=== PATIENT | female | born 1955 | race Caucasian/White ===

== ENCOUNTER 2017-09-16 10:42 | Outpatient (CLI) | payer OTHER ==
--- NOTE | 2017-09-18 08:31 | Mammography Report ---
BILATERAL DIGITAL SCREENING MAMMOGRAM: 09/16/2017 CLINICAL INDICATION: A 62-year-old nulliparous patient for screening. COMPARISON: 08/2015, 08/2014, 08/2013, 07/2012, 06/2011, 02/2010. TECHNIQUE: Routine CC and MLO projections were obtained of the breasts. FINDINGS: Scattered fibroglandular tissue is present within the breasts. There are no dominant masses, suspicious microcalcifications, or secondary signs of malignancy. In comparison to the previous studies, there are no significant changes. ASSESSMENT: NO MAMMOGRAPHIC EVIDENCE OF MALIGNANCY. NO SIGNIFICANT INTERVAL CHANGES. RECOMMENDATION: Screening mammography is recommended annually. BIRADS category 1 - negative. STANDARD QUALIFYING STATEMENTS 1. This examination was reviewed with the aid of Computed Aided Detection (CAD). 2. A negative x-ray report should not delay biopsy if a dominant or clinically suspicious mass is present. More than 5% of cancers are not identified by x-ray. 3. Dense breasts may obscure an underlying neoplasm. arian TD: 09/17/2017 20:52 GERARD
== END 2017-09-16 10:43 | disposition home or self-care (01) ==
LOC: DI 10:42
PROVIDERS: ATTEND Internal Medicine
DX: Z12.31 Encounter for screening mammogram for malignant neoplasm of breast (principal)
CPT/HCPCS: 77067

== ENCOUNTER 2019-09-19 13:27 | Observation (INO) | payer OTHER ==
--- NOTE | 2019-09-19 15:17 | XRAY Report ---
Reason: cough Procedure Date: 09/19/2019 Accession Number: [id number] / [id number] Procedure: XR - Chest 2 View X-Ray CPT Code: 83133 Final Report FULL RESULT: EXAM: CHEST RADIOGRAPHY EXAM DATE: 09/19/2019 02:47 PM. CLINICAL HISTORY: Cough. COMPARISON: 1V CXR 09/07/2006 11:50 AM ESOPHAGRAM 09/08/2006 11:04 AM. TECHNIQUE: 2 views. FINDINGS: Lungs/Pleura: Prominent interstitial lung markings diffusely. No focal consolidation. No pleural effusion. No pneumothorax. Mediastinum: Cardiac size is normal. Air column over the midline mediastinum may be related to patulous esophagus. Other: Stable surgical clips over epigastric region. Partially visualized internal fixation hardware related to the proximal left humerus. IMPRESSION: 1. Prominent interstitial lung markings which could reflect interstitial edema or infection. No focal consolidation. 2. Air column over midline mediastinum could reflect a patulous, air filled esophagus. Clinical correlation recommended. RADIA
[2019-09-19] MEDS ORDERED: IPRATROPIUM/ALBUTEROL 3 ML NEB INH STA (16:07)
--- NOTE | 2019-09-19 16:46 | ED Physician Documentation ---
PD HPI URI - Stated complaint Stated Complaint: SOA, LIGHTHEADED - Chief complaint Chief Complaint: Resp - History obtained from History obtained from: Patient - History of Present Illness Timing - onset: How many weeks ago (2) Timing duration: Weeks (2) Timing details: Gradual onset Pain level max: 0 Pain level now: 0 Associated symptoms: Nasal congestion, Rhinorrhea, Dry cough, Dyspnea (wheezing). No: Fever, Chills Contributing factors: Sick contact Improves by: Rest, MDI/nebulizer (albuterol) Worsened by: Activity, Breathing Recently seen: Clinic - Additional information Additional information: Patient saw her doctor last week, she was started on azithromycin and Prednisone. She did not pick out hand the prednisone until today. Wheezing became worse today. Review of Systems Ten Systems: 10 systems reviewed and negative Constitutional: denies: Fever, Chills Nose: reports: Rhinorrhea / runny nose, Congestion Respiratory: reports: Dyspnea, Wheezing GI: denies: Abdominal Pain, Nausea, Vomiting, Diarrhea Skin: denies: Rash Musculoskeletal: denies: Neck pain, Back pain Neurologic: denies: Headache PD PAST MEDICAL HISTORY - Past Medical History Past Medical History: Yes Respiratory: Asthma - Past Surgical History Past Surgical History: No - Allergies Allergies/Adverse Reactions: Allergies Allergy/AdvReac Type Severity Reaction Status Date / Time No Known Drug Allergies Allergy Verified 09/19/19 13:45 - Living Situation Living Situation: reports: With family Living Arrangement: reports: At home - Social History Does the pt smoke?: No Does the pt have substance abuse?: No PD ED PE NORMAL - Vitals Vital signs reviewed: Yes - General General: Alert and oriented X 3, No acute distress, Well developed/nourished - HEENT HEENT: PERRL, Ears normal, Moist mucous membranes, Pharynx benign - Neck Neck: Supple, no meningeal sign, No adenopathy - Cardiac Cardiac: RRR - Respiratory Respiratory: No respiratory distress, Other (Diffuse wheezing bilaterally.) - Abdomen Abdomen: Soft, Non tender, Non distended - Derm Derm: Warm and dry - Extremities Extremities: No edema - Neuro Neuro: Alert and oriented X 3 - Psych Psych: Normal mood, Normal affect Results - Vitals Vitals: Vital Signs - 24 hr 09/19/19 09/19/19 09/19/19 13:40 16:44 16:46 Temperature 37.4 C Heart Rate 117 H 116 H 117 H Respiratory 18 24 Rate Blood Pressure 176/104 H 146/102 H O2 Saturation 97 100 09/19/19 09/19/19 17:50 18:42 Temperature Heart Rate 121 H 125 H Respiratory 18 16 Rate Blood Pressure 159/108 H O2 Saturation 100 Oxygen O2 Source Room air - Labs Labs: Laboratory Tests 09/19/19 09/19/19 17:29 17:29 WBC 17.3 H RBC 4.48 Hgb 12.6 Hct 38.5 MCV 85.9 MCH 28.1 MCHC 32.7 RDW 15.3 H Plt Count 374 MPV 10.2 Neut # (Auto) 14.5 H Lymph # (Auto) 1.3 L Bee # (Auto) 1.3 H Eos # (Auto) 0.0 Baso # (Auto) 0.0 Absolute Nucleated RBC 0.00 Nucleated RBC % 0.0 Sodium 138 Potassium 3.2 L Chloride 103 Carbon Dioxide 22 Anion Gap 13.0 BUN 8 Creatinine 0.7 Estimated GFR (MDRD) 85 L Glucose 140 H Calcium 9.6 Total Bilirubin 0.6 AST 25 ALT 18 Alkaline Phosphatase 89 Total Protein 7.0 Albumin 4.1 Globulin 2.9 Albumin/Globulin Ratio 1.4 Lipase 19 L - Rads (name of study) cxr Radiology: Prelim report reviewed, EMP read contemporaneously, See rad report (1. Prominent interstitial lung markings which could reflect interstitial edema or infection. No focal consolidation. 2. Air column over midline mediastinum could reflect a patulous, air filled esophagus. Clinical correlation recommended. ) PD MEDICAL DECISION MAKING - ED course Complexity details: reviewed results, re-evaluated patient, considered differential, d/w patient ED course: Patient presents to the emergency department with an asthma exacerbation. She received Solu-Medrol, DuoNeb and albuterol treatment x2 in the emergency department. Total of 3 nebulizer treatment here. She is not hypoxic, but is significantly short of breath and is unable to walk to the bathroom in the room without becoming short of breath. She also cannot speak in full sentences while lying in the bed. We will place her in observation. Discussed the case with Dr. Elizabeth, hospitalist who accepts This document was made in part using voice recognition software. While efforts are made to proofread this document, sound alike and grammatical errors may occur. Departure - Departure Disposition: ED Place in Observation Clinical Impression: Asthma exacerbation Qualifiers: Asthma severity: unspecified severity Asthma persistence: unspecified Qualified Code(s): J45.901 - Unspecified asthma with (acute) exacerbation Condition: Stable Discharge Date/Time: 09/19/19 20:12
[2019-09-19] MEDS ORDERED: ALBUTEROL NEB 2.5 MG/3 ML INH STA (17:04)
[2019-09-19] MEDS ORDERED: methylPREDNISolone SUCCINATE 125 MG/2 ML VIAL IVP STA (19:18)
[2019-09-19] MEDS ORDERED: SODIUM CHLORIDE FLUSH 0.9% 10 ML SYRINGE IVP PRN (19:23)
[2019-09-19] MEDS ORDERED: IPRATROPIUM/ALBUTEROL 3 ML NEB INH PRN (19:25)
--- NOTE | 2019-09-19 19:28 | HISTORY & PHYSICAL EXAMINATION ---
Chief Complaint - Chief Complaint Chief Complaint: dyspnea History of Present Illness - Admitted From Admitted From:: [facility] - History Obtained From Records Reviewed: yes History obtained from: patient - History of Present Illness HPI Comment/Other: Patient is a 64 y/o female who presented to the ED with dyspnea and an unproductive cough. Her symptoms have been going on for the past 4-5 days. She saw her PCP(Dr Tomlin) who prescribed a Zpak. The patient has completed the antibiotic. At the same time she was prescribed steroids and advised to take it if her symptoms did not improve. She started the steroids this morning. At work today she was having significant nonproductive cough, dyspnea, wheezing and was unable to speak in full sentences. She went to her PC's office and was advised to go to the ED so she drove herself to the ED. In the ED she was given 3 breathing treatments but she continued to have conversational dyspnea and was unable to take deep breaths. As a result she was presented for admission. At bedside she denies chest pain, abd pain, nausea or vomiting. She is able to speak with more ease and has better air movement upon auscultation of her lungs. She reports sweats and going through periods of feeling hot and cold. She usually uses her albuterol inhaler 3 times a day. The last time she had an exacerbation of asthma was last . Usually it is triggered by stress. 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 She is being admitted for further treatment. History - Past Medical History Cardiovascular: reports: Hypertension Respiratory: reports: Asthma Endocrine/Autoimmune: reports: Other (Hx of insulinoma) GI: reports: GERD, Ulcers (peptic) Psych: reports: Depression, Anxiety Other Past Medical History: Bulging cervical discs - Past Surgical History General: reports: Appendectomy, Splenectomy HEENT: reports: Tonsil/Adenoidectomy Other past surgical history: Insulinoma - Family & Social History Family History Comment/Other: father: hypertension. sister: breast cancer Living arrangement: At home Living Situation: With family Social History Notes: Her nephew and his live with her. She drinks 1-2 beers daily. She denies tobacco or illicit drug use. - POLST Patient has POLST: No POLST Status: Full Code Meds/Allgy - Allergies Allergies/Adverse Reactions: Allergies Allergy/AdvReac Type Severity Reaction Status Date / Time No Known Drug Allergies Allergy Verified 09/19/19 13:45 Review of Systems - Constitutional Constitutional: reports: Chills. denies: Fever - Eyes Eyes: denies: Pain, Vision loss - Ears, Nose & Throat Ears, Nose & Throat: denies: Ear pain, Sore throat - Cardiovascular Cariovascular: reports: Palpitations. denies: Chest pain, Lightheadedness, Syncope, Exertional dyspnea, Decr. exercise tolerance - Respiratory Respiratory: reports: Cough, Wheezing, SOB at rest, SOB with exertion. denies: Sputum production - Gastrointestinal Gastrointestinal: reports: Reflux/heartburn. denies: Abdominal pain, Abdominal distention, Constipation, Diarrhea, Nausea, Vomiting, Coffee grounds emesis - Genitourinary Genitourinary: denies: Dysuria, Frequency, Urgency, Hematuria - Musculoskeletal Musculoskeletal: denies: Muscle pain, Back pain, Muscle aches - Integumentary Integumentary: denies: Rash, Pruritis, Lesions - Neurological Neurological: denies: General weakness, Focal weakness, Headache, Dizziness, Numbness - Psychiatric Psychiatric: reports: Depression, Anxiety - Endocrine Endocrine: denies: Polyuria, Polydypsia - Hematologic/Lymphatic Hematologic/Lymphatic: denies: Anemia, Bruising, Petechiae Prior Level of Functionality: She is independent of activities of daily living Exam - Vital Signs Vital Signs: Vital Signs x48h Temp Pulse Resp BP Pulse Ox 09/19/19 18:42 125 H 16 159/108 H 100 09/19/19 17:50 121 H 18 09/19/19 16:46 117 H 24 146/102 H 100 09/19/19 16:44 116 H 09/19/19 13:40 37.4 C 117 H 18 176/104 H 97 - Physical Exam General Appearance: positive: Alert, Mild distress Eyes Bilateral: positive: Normal inspection, PERRL, EOMI ENT: positive: ENT inspection nml, No signs of dehydration Neck: positive: No JVD, Trachea midline Respiratory: positive: Chest non-tender. negative: Breath sounds nml, Wheezes, Rales, Rhonchi Cardiovascular: positive: Tachycardia Abdomen: positive: Non-tender, No organomegaly, Nml bowel sounds, No distention. negative: Guarding, Rebound Back: positive: Nml inspection Skin: positive: Color nml. negative: No rash, Warm, Dry Extremities: positive: Non-tender, Full ROM, No pedal edema Neurologic/Psychiatric: positive: Oriented x3, Mood/affect nml Conclusion/Plan - Problem List (1) Asthma exacerbation Conclusion/Plan: Duoneb and albuterol ordered Solumedrol 125mg IV q6hr O2Sat 100% on room air. Patient able to converse in full sentences Qualifiers: Asthma severity: mild Asthma persistence: unspecified Qualified Code(s): J45.901 - Unspecified asthma with (acute) exacerbation (2) Hypertension Conclusion/Plan: On lisinopril. Will resume when dose verified Amlodipine 5mg po daily ordered (3) GERD (gastroesophageal reflux disease) Conclusion/Plan: Protonix ordered (4) Anxiety and depression Conclusion/Plan: Will resume home med when verified Patient currently know/remember her list of meds (5) Hypokalemia Conclusion/Plan: Will replace and recheck (6) Leukocytosis Conclusion/Plan: Reactive vs Infectious Suspect reactive. Also patient on steroids Will monitor for now - Lab Results Fish Bones: 09/19/19 17:29 09/19/19 17:29 Core Measures - Anticipated LOS I expect patient to be DC'd or transferred within 96 hours.: Yes - DVT/VTE - Prophylaxis VTE/DVT Device ordered at admit?: Yes VTE/DVT Prophylaxis med ordered at admit?: Yes
[2019-09-19] MEDS ORDERED: ALBUTEROL NEB 2.5 MG/3 ML INH PRN (19:29)
[2019-09-19 19:38] LABS: BASOPHILS % (AUTO) 0.2 %; HGB - HEMOGLOBIN 12.6 g/dL (12.0-16.0); LYMPHOCYTES # (AUTO) 1.3 10^3/uL (1.5-3.5); LYMPHOCYTES % (AUTO) 7.5 %; MEAN CORPUSCULAR HEMOGLOBIN 28.1 pg (27.0-31.0); MEAN CORPUSCULAR HGB CONC 32.7 g/dL (32.0-36.0); MEAN CORPUSCULAR VOLUME 85.9 fL (81.0-99.0); MEAN PLATELET VOLUME 10.2 fL (7.9-10.8); MONOCYTES # (AUTO) 1.3 10^3/uL (0.0-1.0); MONOCYTES % (AUTO) 7.7 %; NEUTROPHILS # (AUTO) 14.5 10^3/uL (1.5-6.6); NEUTROPHILS % (AUTO) 83.8 %; PLT - PLATELET COUNT 374 10^3/uL (130-450); RED BLOOD COUNT 4.48 10^6/uL (4.20-5.40); RED CELL DISTRIBUTION WIDTH 15.3 % (12.0-15.0); WHITE BLOOD COUNT 17.3 x10^3/uL (4.8-10.8)
[2019-09-19 19:51] LABS: ALBUMIN 4.1 g/dL (3.2-5.5); ALBUMIN/GLOBULIN RATIO 1.4 (1.0-2.2); BILIRUBIN,TOTAL 0.6 mg/dL (0.2-1.0); CALCIUM 9.6 mg/dL (8.5-10.3); CREATININE 0.7 mg/dL (0.4-1.0)
[2019-09-19] MEDS ORDERED: traMADol 50 MG TABLET PO STA (20:00)
[2019-09-19] MEDS ORDERED: guaiFENesin/CODEINE 5 ML UDC PO PRN (21:33)
[2019-09-19] MEDS ORDERED: amLODIPine 5 MG TABLET PO STA (21:34)
[2019-09-19] MEDS: methylPREDNISolone SUCCINATE 125 MG/2 ML VIAL IVP SCH (21:37)
[2019-09-19] MEDS ORDERED: POTASSIUM CHLORIDE 20 MEQ TABLET PO ONE (22:48)
[2019-09-19] MEDS: SODIUM CHLORIDE FLUSH 0.9% 10 ML SYRINGE IVP SCH (23:47)
[2019-09-20] MEDS ORDERED: traMADol 50 MG TABLET PO PRN ×2 (04:24→13:25)
[2019-09-20] MEDS: methylPREDNISolone SUCCINATE 125 MG/2 ML VIAL IVP SCH (04:47)
[2019-09-20 05:38] LABS: BASOPHILS % (AUTO) 0.1 %; HGB - HEMOGLOBIN 11.8 g/dL (12.0-16.0); LYMPHOCYTES # (AUTO) 0.9 10^3/uL (1.5-3.5); LYMPHOCYTES % (AUTO) 7.5 %; MEAN CORPUSCULAR HEMOGLOBIN 27.8 pg (27.0-31.0); MEAN CORPUSCULAR HGB CONC 32.6 g/dL (32.0-36.0); MEAN CORPUSCULAR VOLUME 85.4 fL (81.0-99.0); MEAN PLATELET VOLUME 10.7 fL (7.9-10.8); MONOCYTES % (AUTO) 0.3 %; NEUTROPHILS # (AUTO) 11.3 10^3/uL (1.5-6.6); NEUTROPHILS % (AUTO) 91.4 %; PLT - PLATELET COUNT 357 10^3/uL (130-450); RED BLOOD COUNT 4.24 10^6/uL (4.20-5.40); RED CELL DISTRIBUTION WIDTH 15.7 % (12.0-15.0); WHITE BLOOD COUNT 12.4 x10^3/uL (4.8-10.8)
[2019-09-20 05:43] LABS: CREATININE 0.4 mg/dL (0.4-1.0)
[2019-09-20] MEDS ORDERED: PANTOPRAZOLE 40 MG TABLET PO SCH (07:00)
[2019-09-20] MEDS: ENOXAPARIN 40 MG/0.4 ML SYRINGE SUBQ SCH ×2 (08:40→08:41)
[2019-09-20] MEDS ORDERED: amLODIPine 5 MG TABLET PO SCH (09:00)
[2019-09-20] MEDS ORDERED: IPRATROPIUM/ALBUTEROL 3 ML NEB INH PRN (09:43)
[2019-09-20] MEDS ORDERED: BUDESONIDE 0.5 MG/2 ML NEB INH SCH (10:00)
[2019-09-20] MEDS ORDERED: LORATADINE 10 MG TABLET PO SCH (11:00)
[2019-09-20] MEDS: SODIUM CHLORIDE FLUSH 0.9% 10 ML SYRINGE IVP SCH (11:17)
[2019-09-20 11:51] VITALS: BP 136/81
[2019-09-20] MEDS ORDERED: methylPREDNISolone SUCCINATE 40 MG/ML VIAL IVP SCH (12:00)
--- NOTE | 2019-09-20 12:27 | PHARMACY PROGRESS NOTE ---
- Best Possible Medication History Admit Date and Time: 09/19/191922 Processed by: Pharmacy Medication History completed: Yes Patient Interview: Completed Secondary Source(s): Pharmacy records ([facility]) As the person ultimately responsible for medication therapy, providers are able to order a medication from an existing home medication list in [facility] via the "Reconcile Routine" prior to Confirmation of that medication by respiratory support technician. Such practice is discouraged except when the physician, in their clinical judgment, deems that a medical need exists for a medication without regard to previous use.
[2019-09-20] MEDS ORDERED: TEMAZEPAM 15 MG CAPSULE PO PRN (13:25)
--- NOTE | 2019-09-20 13:45 | Discharge Plan ---
Discharge Plan Problem Reviewed?: Yes Disposition: Home, Self Care Condition: Stable Prescriptions: Fluticasone/Salmeterol [Advair Hfa 115-21 Mcg Inhaler] 8 gm IH Q6H PRN #1 hfa.aer.ad PRN Reason: Shortness Of Air/Wheezing predniSONE [Deltasone] 20 mg PO [id number] #21 tab Diet: Regular Activity Restrictions: Activity as Tolerated Shower Restrictions: No (fall precaution) Instruction Topics: Asthma, Fluticasone Salmeterol inhalation powder, Prednisone tablets Health Concerns: asthma Plan of Treatment: after you were treated in hospital, you do not present any respiratory distress now. You are prescribed Advair PRN, and shortness period of time of oral steroid. Care Goals: stabilization and improvement of your asthma Assessment: discussed with you about the care plan, you understood. Additional Instructions or Follow Up instructions: you may followup your PCP in 1-2 weeks. Should your symptoms return or worsen, you may present ER or call 911 for help No Smoking: If you smoke, Please STOP! Call for help. Follow-up with: Kristine Martell MD [Primary Care Provider] -
--- NOTE | 2019-09-20 13:52 | DISCHARGE SUMMARY ---
Discharge Summary Admit Date: 09/19/19 Discharge Date: 09/20/19 Discharging Provider: BALDERAS Primary Care Provider: Kristine Kc Condition at Discharge: Stable Discharge Disposition: 01 Home, Self Care Discharge Facility Name: home - DIAGNOSES Admission Diagnoses: (1) Asthma exacerbation (2) Hypertension (3) GERD (gastroesophageal reflux disease) (4) Anxiety and depression (5) Hypokalemia (6) Leukocytosis Discharge Diagnoses with Status of Each Condition: (1) Asthma exacerbation resolved. pt does not present any more respiratory distress. she has 99% sat on room air. pt has no wheezing in her lung sound, and no cough. pt is prescribed PRN of Advair, and short term of oral steroid with waned off dosage. (2) Hypertension stable (3) GERD (gastroesophageal reflux disease) stable (4) Anxiety and depression stable (5) Hypokalemia resolved (6) Leukocytosis improved, it is likely caused by pt's recently steroid intake. - HPI History of Present Illness: refer from Dr. Elizabeth's HPI on 09/19/19 Patient is a 64 y/o female who presented to the ED with dyspnea and an unproductive cough. Her symptoms have been going on for the past 4-5 days. She saw her PCP(Dr Tomlin) who prescribed a Zpak. The patient has completed the antibiotic. At the same time she was prescribed steroids and advised to take it if her symptoms did not improve. She started the steroids this morning. At work today she was having significant nonproductive cough, dyspnea, wheezing and was unable to speak in full sentences. She went to her PC's office and was advised to go to the ED so she drove herself to the ED. In the ED she was given 3 breathing treatments but she continued to have conversational dyspnea and was unable to take deep breaths. As a result she was presented for admission. At bedside she denies chest pain, abd pain, nausea or vomiting. She is able to speak with more ease and has better air movement upon auscultation of her lungs. She reports sweats and going through periods of feeling hot and cold. She usually uses her albuterol inhaler 3 times a day. The last time she had an exacerbation of asthma was last . Usually it is triggered by stress. 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 She is being admitted for further treatment. - HOSPITAL COURSE Hospital Course: pt was admitted for acute asthma exacerbation attack. after pt was treated with IV of steroid, INH of beta-agonist, INH of steroid, pt's symptom is resolved. pt has no wheezing, no respiratory distress. she has 99% sat on room air. The [facility] hospital course is as the below: (1) Asthma exacerbation resolved. pt does not present any more respiratory distress. she has 99% sat on room air. pt has no wheezing in her lung sound, and no cough. pt is hemodynamic stable. pt is prescribed PRN of Advair, and short term of oral steroid with waned off dosage. (2) Hypertension stable (3) GERD (gastroesophageal reflux disease) stable (4) Anxiety and depression stable (5) Hypokalemia resolved (6) Leukocytosis improved, it is likely caused by pt's recently steroid intake. - ALLERGIES Allergies/Adverse Reactions: Allergies Allergy/AdvReac Type Severity Reaction Status Date / Time No Known Drug Allergies Allergy Verified 09/19/19 13:45 - MEDICATIONS Home Medications: Ambulatory Orders Medication Instructions Recorded Confirmed Albuterol Sulfate [Albuterol 2 puffs INH Q4H PRN 09/20/19 09/20/19 Sulfate Hfa] Buspirone HCl 15 mg PO BID 09/20/19 09/20/19 Celecoxib [Celebrex] 200 mg PO DAILY 09/20/19 09/20/19 Cyclobenzaprine HCl 10 mg PO BID 09/20/19 09/20/19 Fluoxetine HCl 40 mg PO DAILY 09/20/19 09/20/19 Fluticasone/Salmeterol [Advair Hfa 8 gm IH Q6H PRN #1 hfa.aer.ad 09/20/19 115-21 Mcg Inhaler] Gabapentin 600 mg PO TID 09/20/19 09/20/19 Montelukast [Singulair] 10 mg PO QPM 09/20/19 09/20/19 Temazepam 15 mg PO QPM PRN 09/20/19 09/20/19 lisinopriL [Lisinopril] 20 mg PO DAILY 09/20/19 09/20/19 predniSONE [Deltasone] 20 mg PO [id number] #21 tab 09/20/19 traMADol [Ultram] 100 mg PO TID PRN 09/20/19 09/20/19 - PHYSICAL EXAM AT DISCHARGE General Appearance: positive: No acute distress, Alert. negative: Lethargic Eyes Bilateral: positive: Normal inspection, PERRL, EOMI, No lid inflammation ENT: positive: ENT inspection nml, Pharynx nml, No signs of dehydration. negative: Purulent nasal drainage Neck: positive: Nml inspection, Thyroid nml, No JVD, Trachea midline. negative: Thyromegaly, Lymphadenopathy (R), Lymphadenopathy (L), Stiff neck, Tracheal deviation Respiratory: positive: Chest non-tender, No respiratory distress, Breath sounds nml. negative: Wheezes, Rales, Rhonchi Cardiovascular: positive: Regular rate & rhythm, No murmur, No gallop, Other (pt is not tachycardia, her HR is 92 by my manual caculation by stethoscope). negative: Irregularly irregular, Extrasystoles, Tachycardia, Bradycardia, JVD present, Systolic murmur, Diastolic murmur Peripheral Pulses: positive: 2+ Abdomen: positive: Non-tender, No organomegaly, Nml bowel sounds, No distention. negative: Tenderness, Guarding, Rebound Skin: positive: Color nml, No rash, Warm, Dry. negative: Cyanosis, Diaphoresis, Pallor, Skin rash Extremities: positive: Non-tender, Full ROM, Nml appearance. negative: Calf tenderness, Brayden's sign/cords Neurologic/Psychiatric: positive: Oriented x3, Motor nml, Sensation nml, Mood/affect nml. negative: Weakness, Sensory loss, Facial droop, Slurred/abnml speech, Depressed mood/affect - LABS Result Diagrams: 09/20/19 04:55 09/20/19 04:55 - FOLLOW UP Follow Up: after you were treated in hospital, you do not present any respiratory distress now. You are prescribed Advair PRN, and shortness period of time of oral steroid. you may followup your PCP in 1-2 weeks. Should your symptoms return or worsen, you may present ER or call 911 for help - TIME SPENT Time Spent in Discharge (Minutes): 40
[2019-09-20] MEDS ORDERED: GABAPENTIN 300 MG CAPSULE PO SCH (14:00)
[2019-09-20] MEDS ORDERED: MONTELUKAST 10 MG TABLET PO SCH (21:00)
[2019-09-20] MEDS ORDERED: busPIRone 5 MG TABLET PO SCH (21:00)
[2019-09-21] MEDS ORDERED: CELECOXIB 200 MG PO SCH (09:00)
[2019-09-21] MEDS ORDERED: NON FORMULARY MED (Fluoxetine Hcl [Fluoxetine Hcl] 40 MG) PO SCH (09:00)
[2019-09-21] MEDS ORDERED: NON FORMULARY MED (Lisinopril [Lisinopril] 20 MG) PO SCH (09:00)
== END 2019-09-20 14:31 | disposition home or self-care (01) ==
LOC: ED 13:27 → MS2 19:23
PROVIDERS: ADMIT Internal Medicine; ATTEND Nurse Practitioner Gerontology
DX: J45.901 Unspecified asthma with (acute) exacerbation (principal); I10 Essential (primary) hypertension; K21.9 Gastro-esophageal reflux disease without esophagitis; F41.9 Anxiety disorder, unspecified; F32.9 Major depressive disorder, single episode, unspecified; E87.6 Hypokalemia; D72.829 Elevated white blood cell count, unspecified
CPT/HCPCS: 36415; 71046; 80048; 80053; 83690; 85025; 94640; 96372; 96374; 96376; 99285; A9270; G0378; J1650; J7626

== ENCOUNTER 2020-08-12 14:07 | Outpatient (CLI) | payer OTHER ==
--- NOTE | 2020-08-13 14:05 | Mammography Report ---
BILATERAL DIGITAL SCREENING MAMMOGRAM 3D/2D: 08/12/2020 CLINICAL: Routine screening. Family history of breast cancer. Comparison is made to exams dated: 09/16/2017 mammogram, 09/25/2015 mammogram, 09/19/2014 mammogram, 09/06/2013 mammogram, 08/24/2012 mammogram, and 07/09/2011 mammogram - [facility]. The tissue of both breasts is predominantly fatty. There is a benign calcification in the left breast. No significant masses, calcifications, or other findings are seen in either breast. There has been no significant interval change. IMPRESSION: BENIGN There is no mammographic evidence of malignancy. A 1 year screening mammogram is recommended. This exam was interpreted at Station ID: [id number]. NOTE: For mammograms, a report in lay terms will be sent to the patient. Approximately 15% of breast malignancies will not be visualized mammographically. In the management of a palpable breast mass, a negative mammogram must not discourage biopsy of a clinically suspicious lesion. Electronically Signed By: Terrence Valentin acr/penrad:08/12/2020 18:11:08 ACR BI-RADS Category 2: Benign Finding(s) 3342F PARENCHYMAL PATTERN: (F) - The breast(s) demonstrate(s) diffuse fatty replacement. BI-RADS CATEGORY: (2) - 2 RECOMMENDATION: (ANNUAL) - Recommend routine annual screening mammography. [id number] 1 year screening LATERALITY: (B)
== END 2020-08-12 14:08 | disposition home or self-care (01) ==
LOC: DI 14:07
PROVIDERS: ATTEND Internal Medicine
DX: Z12.31 Encounter for screening mammogram for malignant neoplasm of breast (principal); Z80.3 Family history of malignant neoplasm of breast
CPT/HCPCS: 77063; 77067

== ENCOUNTER 2021-05-04 15:14 | Outpatient (CLI) | payer OTHER | END 2021-05-04 15:15 | disposition critical access hospital (66) | LOC: EMS 15:14 | DX: R11.10 Vomiting, unspecified (principal); R19.7 Diarrhea, unspecified; F41.9 Anxiety disorder, unspecified | CPT/HCPCS: A0425; A0427 ==

== ENCOUNTER 2021-05-04 15:26 | Emergency (ER) | payer OTHER ==
[2021-05-04 15:53] LABS: BASOPHILS % (AUTO) 0.2 %; EOSINOPHILS % (AUTO) 0.9 %; HCT - HEMATOCRIT 40.4 % (37.0-47.0); HGB - HEMOGLOBIN 13.7 g/dL (12.0-16.0); LYMPHOCYTES % (AUTO) 14.5 %; MEAN CORPUSCULAR HEMOGLOBIN 27.6 pg (27.0-31.0); MEAN CORPUSCULAR HGB CONC 33.9 g/dL (32.0-36.0); MEAN CORPUSCULAR VOLUME 81.3 fL (81.0-99.0); MEAN PLATELET VOLUME 10.4 fL (7.9-10.8); MONOCYTES % (AUTO) 8.3 %; NEUTROPHILS % (AUTO) 75.2 %; PLT - PLATELET COUNT 317 10^3/uL (130-450); RED BLOOD COUNT 4.97 10^6/uL (4.20-5.40); RED CELL DISTRIBUTION WIDTH 15.2 % (12.0-15.0); WHITE BLOOD COUNT 11.6 x10^3/uL (4.8-10.8)
[2021-05-04 15:56] LABS: ABNORMAL LYMPHS % (MANUAL) 0 %; BAND NEUTROPHILS % (MANUAL) 0 %
[2021-05-04 16:05] LABS: ALBUMIN 4.3 g/dL (3.2-5.5); ALBUMIN/GLOBULIN RATIO 1.4 (1.0-2.2); BILIRUBIN,TOTAL 1.3 mg/dL (0.2-1.0); CALCIUM 9.2 mg/dL (8.5-10.3); CREATININE 0.5 mg/dL (0.4-1.0); POTASSIUM 2.6 mmol/L (3.5-5.0); TOTAL PROTEIN 7.4 g/dL (6.7-8.2)
[2021-05-04] MEDS ORDERED: METOCLOPRAMIDE 10 MG/2 ML VIAL IVP STA (16:08)
[2021-05-04] MEDS ORDERED: SODIUM CHLORIDE 0.9% 1,000 ML IV STA (16:08)
--- NOTE | 2021-05-04 16:14 | ED Physician Documentation ---
History of Present Illness - Stated complaint Stated Complaint: DIARRHEA - Chief complaint Chief Complaint: Abd Pain - Additonal information Additional information: 65-year-old female presents the emergency department for evaluation of 3 days nausea, dry heaving and diarrhea. She reports stomach surgery number years ago in which they tacked her stomach down and prevents her from being able to vomit. Anytime she tries to eat or drink something even small she is persistently nauseated and then dry heaves. Subjective fevers and chills. No dysuria urgency or frequency denies melena or hematochezia. Denies similar illness and others at home. Review of Systems Constitutional: reports: Chills, Myalgias. denies: Fever Eyes: reports: Reviewed and negative Nose: reports: Reviewed and negative Throat: reports: Reviewed and negative Cardiac: reports: Reviewed and negative Respiratory: reports: Reviewed and negative GI: reports: Abdominal Pain, Nausea, Vomiting, Diarrhea : denies: Dysuria, Frequency, Hesitancy Skin: denies: Rash, Lesions Musculoskeletal: reports: Reviewed and negative PD PAST MEDICAL HISTORY - Past Medical History Cardiovascular: Hypertension Respiratory: Asthma Neuro: Headaches, Migraines Endocrine/Autoimmune: Other GI: GERD, Ulcers : None Psych: Depression, Anxiety Musculoskeletal: Osteoarthritis, Other Derm: None - Past Surgical History Past Surgical History: No General: Appendectomy, Splenectomy HEENT: Tonsil/Adenoidectomy - Present Medications Home Medications: Ambulatory Orders Medication Instructions Recorded Confirmed Albuterol Sulfate [Albuterol 2 puffs INH Q4H PRN 09/20/19 09/20/19 Sulfate Hfa] Buspirone HCl 15 mg PO BID 09/20/19 09/20/19 Celecoxib [Celebrex] 200 mg PO DAILY 09/20/19 09/20/19 Cyclobenzaprine HCl 10 mg PO BID 09/20/19 09/20/19 Fluoxetine HCl 40 mg PO DAILY 09/20/19 09/20/19 Fluticasone/Salmeterol [Advair Hfa 8 gm IH Q6H PRN #1 hfa.aer.ad 09/20/19 115-21 Mcg Inhaler] Gabapentin 600 mg PO TID 09/20/19 09/20/19 Montelukast [Singulair] 10 mg PO QPM 09/20/19 09/20/19 Temazepam 15 mg PO QPM PRN 09/20/19 09/20/19 lisinopriL [Lisinopril] 20 mg PO DAILY 09/20/19 09/20/19 predniSONE [Deltasone] 20 mg PO [id number] #21 tab 09/20/19 traMADol [Ultram] 100 mg PO TID PRN 09/20/19 09/20/19 Ondansetron Odt [Zofran] 4 mg TL Q6H PRN #10 tablet 05/04/21 Potassium Chloride 20 meq PO DAILY #5 05/04/21 - Allergies Allergies/Adverse Reactions: Allergies Allergy/AdvReac Type Severity Reaction Status Date / Time Penicillins Allergy Unknown Verified 05/04/21 15:35 - Social History Does the pt smoke?: No Smoking Status: Never smoker Does the pt drink ETOH?: No Does the pt have substance abuse?: No - Immunizations Immunizations: TDAP >10years/unknown - POLST Patient has POLST: No POLST Status: Full Code PD ED PE EXPANDED - General General: Alert, No acute distress - Cardiac Cardiac: Regular Rate, Radial strong equal, Pedal strong equal, Cap refill < 2 sec - Respiratory Respiratory: Clear to ausultation kevyn. No: Distress, Labored - Abdomen Abdomen: Hyperactive BS, Tender to palpation (generalized abdominal tenderness, non focal. no guarding or rebound. ) - Back Back: Normal exam - Derm Derm: Normal color, Warm and dry - Extremities Extremities: Normal. No: Deformity, Tenderness - Neuro Neuro: Alert and Oriented X 3, CNII-XII intact - GCS Eye Opening: Spontaneous Motor: Obeys Commands Verbal: Oriented Total: 15 Results - Vitals Vitals: Vital Signs - 24 hr 05/04/21 05/04/21 05/04/21 15:35 17:37 19:00 Temperature 36.5 C Heart Rate 94 95 108 H Respiratory 19 18 18 Rate Blood Pressure 175/124 H 159/103 H 149/97 H O2 Saturation 100 100 99 Oxygen O2 Source Room air - Labs Labs: Laboratory Tests 05/04/21 05/04/21 15:47 15:47 WBC 11.6 H RBC 4.97 Hgb 13.7 Hct 40.4 MCV 81.3 MCH 27.6 MCHC 33.9 RDW 15.2 H Plt Count 317 MPV 10.4 Neut # (Auto) Not Reportable Lymph # (Auto) Not Reportable [place] # (Auto) Not Reportable Eos # (Auto) Not Reportable Baso # (Auto) Not Reportable Absolute Nucleated RBC Not Reportable Total Counted 100 Band Neuts % (Manual) 0 Abnorm Lymph % (Manual) 0 Nucleated RBC % Not Reportable Neutrophils # (Manual) 9.0 H Lymphocytes # (Manual) 1.9 Monocytes # (Manual) 0.7 Eosinophils # (Manual) 0.0 Basophils # (Manual) 0.0 Differential Comment MANUAL DIFFERENTIAL WBC Morphology NORMAL RODERICK Platelet Estimate NORMAL (130-450,000) Platelet Morphology 1+ GIANT PLATELETS RBC Morph Micro Appear NORMAL APPEARANCE Sodium 131 L Potassium 2.6 L Chloride 100 L Carbon Dioxide 17 L Anion Gap 14.0 H BUN 16 Creatinine 0.5 Estimated GFR (MDRD) 125 Glucose 121 H Calcium 9.2 Total Bilirubin 1.3 H AST 38 ALT 21 Alkaline Phosphatase 102 Total Protein 7.4 Albumin 4.3 Globulin 3.1 Albumin/Globulin Ratio 1.4 Lipase 19 L - Rads (name of study) Ct abd Radiology: Final report received (GE junction postoperative change can be seen with a small to moderate hiatal hernia. Gallstones seen without findings of cholecystitis. Diverticulosis without diverticulitis.) PD MEDICAL DECISION MAKING - ED course Complexity details: reviewed results, re-evaluated patient ED course: 65-year-old female presents the emergency department with 2 days of nausea and dry heaves. She reports a surgery in the past that has limited her ability to actively vomit. She has also been having some diarrhea but no active fevers. Screening labs show a very mild leukocytosis. Her abdominal exam was nonfocal but given the age and the history of inability to vomit we did proceed to do a CT scan that did not show any worrisome or acute surgical findings. Her labs did show a moderate hypokalemia. She was repleted with 40 mEq potassium IV here in the ER and will be given 40 of potassium to take daily for the next 2 days. I am requesting she recheck her BMP with her primary doctor in the next week. I will prescribe some Zofran for her. After IV fluids pain me dicine and antiemetic patient is now tolerating clear liquids and crackers here in the ER. Emergent return precautions were discussed. Departure - Departure Disposition: 01 Home, Self Care Clinical Impression: Hiatal hernia, Hypokalemia Vomiting Qualifiers: Vomiting type: unspecified Vomiting Intractability: intractable Nausea presence: with nausea Qualified Code(s): R11.2 - Nausea with vomiting, unspecified Diarrhea Qualifiers: Diarrhea type: unspecified type Qualified Code(s): R19.7 - Diarrhea, unspecified Condition: Stable Record reviewed to determine appropriate education?: Yes Follow-Up: Kristine Martell MD [Primary Care Provider] - Prescriptions: Potassium Chloride 20 meq PO DAILY #5 Ondansetron Odt [Zofran] 4 mg TL Q6H PRN #10 tablet PRN Reason: Nausea / Vomiting Comments: Nea you are seen in the ER today for vomiting and diarrhea. Your labs showed that you had a fairly low potassium and we gave you IV potassium here in the ER. I would like you to fill the potassium and begin taking daily for 5 days. It is important that you recheck your potassium and electrolytes with your primary care doctor in about [address] scan did not show any bowel obstructions. We did give you IV fluids as well as nausea medicine in the ER with good relief of symptoms. I am prescribing Zofran to help with the nausea at home. Please return to the ER if your symptoms are not improved, you develop fevers, have black or bloody stools or any other emergent concerns.
[2021-05-04] MEDS ORDERED: IOPAMIDOL-300 100 ML VIAL ONE (16:17)
[2021-05-04 16:24] LABS: LYMPHOCYTES # (MANUAL) 1.9 10^3/uL (1.5-3.5); LYMPHOCYTES % (MANUAL) 16 %; MONOCYTES # (MANUAL) 0.7 10^3/uL (0.0-1.0)
[2021-05-04 16:26] LABS: PLATELET ESTIMATE, MANUAL NORMAL (130-450,000) (NORMAL); RBC MORPHOLOGY (MULTIPLE) NORMAL APPEARANCE (NORMAL)
[2021-05-04 16:27] LABS: PLATELET MORPHOLOGY 1+ GIANT PLATELETS (NORMAL)
[2021-05-04 16:28] LABS: DIFFERENTIAL COMMENT MANUAL DIFFERENTIAL; WBC MORPHOLOGY (MULTIPLE) NORMAL APP (NORMAL)
[2021-05-04] MEDS ORDERED: IOPAMIDOL-300 100 ML VIAL IVP ONE (16:28)
[2021-05-04] MEDS: POTASSIUM CHLOR 10 MEQ/100 ML 10 MEQ/100 ML BAG IV SCH ×4 (16:43→20:50)
--- NOTE | 2021-05-04 16:50 | CT Report ---
PROCEDURE: Abdomen/Pelvis W INDICATIONS: nausea CONTRAST: IV CONTRAST: Isovue 300 ml: 100 PO CONTRAST: *NO PO CONTRAST TECHNIQUE: After the administration of IV contrast, 5 mm thick sections acquired from the diaphragms to the symp hysis. 5 mm thick coronal and sagittal reformats were acquired. For radiation dose reduction, the f ollowing was used: automated exposure control, adjustment of mA and/or kV according to patient size. COMPARISON: None. FINDINGS: Image quality: Excellent. ABDOMEN: Lung bases: Lung bases are clear. Heart size is normal. A small to moderate hiatal hernia can be s een. Solid organs: Liver demonstrates normal size and normal enhancement. A small spleen is seen. There is a focus of an apparent enhancing splenic tissue seen within the left paracolic gutter, as on series 3 image 47 and measures 11 mm. Gallbladder demonstrates rim calcified gallstones within its lumen. B iliary system is non dilated. Pancreas enhances normally. No adrenal nodules. Kidneys demonstrate normal size and enhancement, without hydronephrosis. A presumed simple cyst is seen at the inferior p ole of the right kidney, which is too small to definitively characterize, as on series 6 image 34, me asuring 6 mm. Peritoneum and bowel: Gastroesophageal junction postoperative clips are seen. Bowel loops demonstrat e normal wall thickness and caliber. No free fluid or air. Diverticulosis can be seen, without gray k findings of active diverticulitis. Nodes and vessels: No retroperitoneal or mesenteric adenopathy by size criteria. Aorta and inferior vena cava are normal in size. Atherosclerotic calcification is seen. Miscellaneous: No ventral hernias. PELVIS: Genitourinary: Bladder wall thickness is normal. This patient is status post hysterectomy. No adnex al masses can be seen. Miscellaneous: No inguinal hernias or adenopathy. Bones: No suspicious bony lesions. No vertebral body compression fractures. Degenerative changes a re seen throughout, which are worst involving the thoracolumbar junction. IMPRESSION: Gastroesophageal junction postoperative change can be seen, with a small to moderate hiatal hernia. Gallstones are seen, without additional findings suspicious for cholecystitis by CT. A small spleen can be seen and there is a presumed focus of enhancing splenic tissue seen within the left paracolic gutter. 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 Incidental note is made of: Focal thoracolumbar junction degenerative change Presumed simple right renal cyst inferiorly Hysterectomy Diverticulosis, without findings of active diverticulitis Reviewed by: Eron Coats MD on 05/04/2021 3:49 PM AKDT Approved by: Eron Coats MD on 05/04/2021 3:49 PM AKHUYEN Station ID: [id number]
[2021-05-04] MEDS ORDERED: ONDANSETRON 4 MG/2 ML VIAL IVP STA (17:09)
[2021-05-04 21:23] LABS: BILIRUBIN,URINE NEGATIVE (NEGATIVE); GLUCOSE, URINE (UA) NEGATIVE (NEGATIVE); KETONES,URINE (UA) 15 mg/dL (NEGATIVE); LEUKOCYTE ESTERASE, URINE TRACE (NEGATIVE); NITRITE,URINE NEGATIVE (NEGATIVE); OCCULT BLOOD,URINE LARGE (NEGATIVE); PROTEIN,URINE 30 mg/dL (NEGATIVE); UROBILINOGEN,URINE 0.2 (NORMAL) E.U./dL (NORMAL)
[2021-05-04 21:25] LABS: CLARITY,URINE CLEAR (CLEAR)
[2021-05-04 21:29] VITALS: BP 164/98
[2021-05-04 21:42] LABS: BACTERIA,URINE Rare /HPF (None Seen); SQUAMOUS EPITHELIAL CELL,UR FEW Squamous (<= Few)
== END 2021-05-04 21:59 | disposition home or self-care (01) ==
LOC: EDUNIT# → ED 15:26
DX: K44.9 Diaphragmatic hernia without obstruction or gangrene (principal); E87.6 Hypokalemia; R11.2 Nausea with vomiting, unspecified; I10 Essential (primary) hypertension
CPT/HCPCS: 36415; 74177; 80053; 81001; 83690; 85025; 87086; 96365; 96366; 96375; 96376; 99284; J2765; Q9967; 81003

== ENCOUNTER 2021-05-09 12:53 | Emergency (ER) | payer SELFPAY ==
[2021-05-09 13:09] VITALS: BP 155/106
--- NOTE | 2021-05-09 14:04 | ED Physician Documentation ---
PD HPI ALTERED MENTAL STATUS - Stated complaint Stated Complaint: MHE - Chief complaint Chief Complaint: Neuro - History obtained from History obtained from: Patient - History of Present Illness Timing - onset: How many weeks ago (she states She has had problems with feeling confused and short-term memory problems for the last several weeks or so. She states she was in detox in [place] recently does not really recall being there. She denies recent medication changes. She does have regular alcohol use.) Timing - duration: Weeks Timing - details: Gradual onset, Waxing and waning Quality / character: Disoriented (does not remember recent events or feels confused about current situational events at times.) Associated symptoms: No: Fever, Headache, Dyspnea, Cough, NVD, Focal weakness Contributing factors: Substance abuse (alcoholism, and does use cannibis often as well.), Known psych illness (depression). No: Recent med change, Recent illness Basline status: Alert and oriented X 3, Ambulatory Similar symptoms before: Has not had sx before Recently seen: Emergency Dept (for nausea and vomiting recently and Rx Zofran. Dx gastritis likely.) Review of Systems Constitutional: denies: Fever, Chills Nose: denies: Rhinorrhea / runny nose, Congestion Throat: denies: Sore throat Cardiac: denies: Chest pain / pressure Respiratory: denies: Dyspnea, Cough GI: reports: Nausea. denies: Abdominal Pain, Vomiting, Constipation, Diarrhea Skin: denies: Rash, Lesions Neurologic: reports: Generalized weakness. denies: Focal weakness, Headache, Head injury Psychiatric: reports: Depressed, Anxiety. denies: Suicidal Endocrine: denies: Weight loss Immunocompromised: denies: Immunocompromised PD PAST MEDICAL HISTORY - Past Medical History Cardiovascular: Hypertension Respiratory: Asthma Neuro: Headaches, Migraines Endocrine/Autoimmune: Other GI: GERD, Ulcers : None Psych: Depression, Anxiety Musculoskeletal: Osteoarthritis, Other Derm: None - Past Surgical History Past Surgical History: No General: Appendectomy, Splenectomy HEENT: Tonsil/Adenoidectomy - Present Medications Home Medications: Ambulatory Orders Medication Instructions Recorded Confirmed Albuterol Sulfate [Albuterol 2 puffs INH Q4H PRN 09/20/19 09/20/19 Sulfate Hfa] Buspirone HCl 15 mg PO BID 09/20/19 09/20/19 Celecoxib [Celebrex] 200 mg PO DAILY 09/20/19 09/20/19 Cyclobenzaprine HCl 10 mg PO BID 09/20/19 09/20/19 Fluoxetine HCl 40 mg PO DAILY 09/20/19 09/20/19 Fluticasone/Salmeterol [Advair Hfa 8 gm IH Q6H PRN #1 hfa.aer.ad 09/20/19 115-21 Mcg Inhaler] Gabapentin 600 mg PO TID 09/20/19 09/20/19 Montelukast [Singulair] 10 mg PO QPM 09/20/19 09/20/19 Temazepam 15 mg PO QPM PRN 09/20/19 09/20/19 lisinopriL [Lisinopril] 20 mg PO DAILY 09/20/19 09/20/19 traMADol [Ultram] 100 mg PO TID PRN 09/20/19 09/20/19 Ondansetron Odt [Zofran] 4 mg TL Q6H PRN #10 tablet 05/04/21 Diazepam [Valium] 10 mg PO BID 05/09/21 05/09/21 Omeprazole 1 tab DAILY 05/09/21 05/09/21 Potassium Citrate [Urocit-K] 5 meq PO DAILY #15 tablet 05/09/21 Sucralfate [Carafate] 1 tab QID 05/09/21 05/09/21 Trifluoperazine HCl 2 mg BID PRN 05/09/21 05/09/21 clonazePAM [Clonazepam] 0.5 mg BID 05/09/21 05/09/21 - Allergies Allergies/Adverse Reactions: Allergies Allergy/AdvReac Type Severity Reaction Status Date / Time Penicillins Allergy Unknown Verified 05/09/21 13:09 - Living Situation Living Situation: reports: Alone Living Arrangement: reports: At home - Social History Does the pt smoke?: No Smoking Status: Never smoker Does the pt drink ETOH?: Yes ETOH Use: Wine, Beer (about 6-8 beers nightly if drinking beer; other times wine or liquor. ) Does the pt have substance abuse?: No Substance Use and Type: Marijuana - Immunizations Immunizations: TDAP >10years/unknown - POLST Patient has POLST: No POLST Status: Full Code PD ED PE NORMAL - Vitals Vital signs reviewed: Yes - General General: Alert and oriented X 3, Well developed/nourished, Other (She seems sad and tearful. She is in interactive and answers questions openly. She does cry more when discussing her father dying last year.) - HEENT HEENT: Pharynx benign - Neck Neck: Supple, no meningeal sign, No adenopathy - Cardiac Cardiac: RRR (mild tachycardia), No murmur - Respiratory Respiratory: Clear bilaterally - Abdomen Abdomen: Soft, Non tender - Female Female : Deferred - Rectal Rectal: Deferred - Back Back: No CVA TTP - Derm Derm: Normal color, Warm and dry - Extremities Extremities: No tenderness to palpate, Normal ROM s pain - Neuro Neuro: Alert and oriented X 3, systems mgr 2-12 intact, No motor deficit, No sensory deficit, Normal speech Eye Opening: Spontaneous Motor: Obeys Commands Verbal: Oriented GCS Score: 15 - Psych Psych: Normal mood (depressed mood), Normal affect (sad/tearful) Results - Vitals Vitals: Vital Signs - 24 hr 05/09/21 13:02 Temperature 36.7 C Heart Rate 115 H Respiratory 14 Rate Blood Pressure 155/106 H O2 Saturation 100 Oxygen O2 Source Room air - Labs Labs: Laboratory Tests 05/09/21 05/09/21 05/09/21 14:33 14:33 14:33 WBC 8.2 RBC 4.94 Hgb 13.7 Hct 40.6 MCV 82.2 MCH 27.7 MCHC 33.7 RDW 15.4 H Plt Count 326 MPV 10.6 Neut # (Auto) 5.2 Lymph # (Auto) 2.1 [place] # (Auto) 0.8 Eos # (Auto) 0.0 Baso # (Auto) 0.1 Absolute Nucleated RBC 0.00 Nucleated RBC % 0.0 Sodium 134 L Potassium 2.8 L Chloride 97 L Carbon Dioxide 25 Anion Gap 12.0 BUN 13 Creatinine 0.6 Estimated GFR (MDRD) 101 Glucose 106 H Calcium 9.3 Total Bilirubin 0.5 AST 45 H ALT 52 Alkaline Phosphatase 95 Total Protein 7.1 Albumin 4.0 Globulin 3.1 Albumin/Globulin Ratio 1.3 Lipase 22 TSH 1.23 Nasal Adenovirus (PCR) Nasal B. parapertussis DNA (PCR) Nasal Coronavir 229E PCR Nasal Coronavir HKU1 PCR Nasal Coronavir NL63 PCR Nasal Coronavir OC43 PCR Nasal Enterovir/Rhinovir PCR Nasal Influenza B PCR Nasal Influenza A PCR Nasal Parainfluen 1 PCR Nasal Parainfluen 2 PCR Nasal Parainfluen 3 PCR Nasal Parainfluen 4 PCR Nasal RSV (PCR) Nasal B.pertussis DNA PCR Nasal C.pneumoniae (PCR) Abdullahi Human Metapneumo PCR Nasal M.pneumoniae (PCR) Nasal SARS-CoV-2 (PCR) Salicylates < 6.0 Acetaminophen < 10 L Ethyl Alcohol < 5.0 05/09/21 14:55 WBC RBC Hgb Hct MCV MCH MCHC RDW Plt Count MPV Neut # (Auto) Lymph # (Auto) [place] # (Auto) Eos # (Auto) Baso # (Auto) Absolute Nucleated RBC Nucleated RBC % Sodium Potassium Chloride Carbon Dioxide Anion Gap BUN Creatinine Estimated GFR (MDRD) Glucose Calcium Total Bilirubin AST ALT Alkaline Phosphatase Total Protein Albumin Globulin Albumin/Globulin Ratio Lipase TSH Nasal Adenovirus (PCR) NOT DETECTED Nasal B. parapertussis DNA (PCR) NOT DETECTED Nasal Coronavir 229E PCR NOT DETECTED Nasal Coronavir HKU1 PCR NOT DETECTED Nasal Coronavir NL63 PCR NOT DETECTED Nasal Coronavir OC43 PCR NOT DETECTED Nasal Enterovir/Rhinovir PCR NOT DETECTED Nasal Influenza B PCR NOT DETECTED Nasal Influenza A PCR NOT DETECTED Nasal Parainfluen 1 PCR NOT DETECTED Nasal Parainfluen 2 PCR NOT DETECTED Nasal Parainfluen 3 PCR NOT DETECTED Nasal Parainfluen 4 PCR NOT DETECTED Nasal RSV (PCR) NOT DETECTED Nasal B.pertussis DNA PCR NOT DETECTED Nasal C.pneumoniae (PCR) NOT DETECTED Abdullahi Human Metapneumo PCR NOT DETECTED Nasal M.pneumoniae (PCR) NOT DETECTED Nasal SARS-CoV-2 (PCR) NOT DETECTED Salicylates Acetaminophen Ethyl Alcohol PD MEDICAL DECISION MAKING - ED course Complexity details: reviewed results (Her potassium is slightly low. Sodium is normal. I did look at her medications she brought with her and certainly they could be several that are causing her feeling a bit confused. We can decrease the dosing on for example the gabapentin and have her hold the tramadol. Certainly less alcohol.), considered differential (She does have element of anxiety and depression with tearfulness. Her complaints of forgetfulness and feeling of disorientation could relate to alcohol use combined with her medications. No focal deficit noted. Can check labs as well.), d/w patient, d/w transportation consultant (social work - who helped pt with contacting Detox center in [place], Pt going there in the AM (there was not bed this evening but person leaving in AM). ) Departure - Departure Disposition: 01 Home, Self Care Clinical Impression: Prolonged grief reaction, Alcoholism, Forgetfulness Depression Qualifiers: Depression Type: unspecified Qualified Code(s): F32.9 - Major depressive disorder, single episode, unspecified Condition: Stable Record reviewed to determine appropriate education?: Yes Follow-Up: Kristine Martell MD [Primary Care Provider] - Prescriptions: Potassium Citrate [Urocit-K] 5 meq PO DAILY #15 tablet Comments: Be sure to stay well-hydrated. Your potassium level is little bit low so would add a potassium supplement daily for a week or so. Your other electrolytes are okay. I think your forgetfulness and some confusion likely to relate to the multiple medications combined with alcohol. Try to decrease your alcohol use and stop if you can. Go to the detox center for initial treatment and help. I would suggest decreasing some of your medications. In your back of medications are both clonazepam and diazepam. Be sure you have not been taking both of these as that would add to your level of confusion and forgetfulness. I would suggest just the clonazepam and do not also take the diazepam (Valium). Additionally you could decrease your gabapentin from 600 mg 3 times a day to only twice a day or perhaps even just decreased to half a tablet for the middle dose of the day to decrease it some. Keep your other medications as prescribed for now and see if the minor medication adjustments help. If not further adjustments may be needed to help decrease the forgetfulness/confusion you have been experiencing. Follow-up with your primary care. Discharge Date/Time: 05/09/21 18:13
[2021-05-09] MEDS ORDERED: SODIUM CHLORIDE 0.9% 1,000 ML IV STA (14:23)
[2021-05-09 14:42] LABS: BASOPHILS # (AUTO) 0.1 10^3/uL (0.0-0.1); BASOPHILS % (AUTO) 0.9 %; EOSINOPHILS % (AUTO) 0.4 %; HCT - HEMATOCRIT 40.6 % (37.0-47.0); HGB - HEMOGLOBIN 13.7 g/dL (12.0-16.0); LYMPHOCYTES # (AUTO) 2.1 10^3/uL (1.5-3.5); LYMPHOCYTES % (AUTO) 25.4 %; MEAN CORPUSCULAR HEMOGLOBIN 27.7 pg (27.0-31.0); MEAN CORPUSCULAR HGB CONC 33.7 g/dL (32.0-36.0); MEAN CORPUSCULAR VOLUME 82.2 fL (81.0-99.0); MEAN PLATELET VOLUME 10.6 fL (7.9-10.8); MONOCYTES # (AUTO) 0.8 10^3/uL (0.0-1.0); MONOCYTES % (AUTO) 9.3 %; NEUTROPHILS # (AUTO) 5.2 10^3/uL (1.5-6.6); NEUTROPHILS % (AUTO) 62.9 %; PLT - PLATELET COUNT 326 10^3/uL (130-450); RED BLOOD COUNT 4.94 10^6/uL (4.20-5.40); RED CELL DISTRIBUTION WIDTH 15.4 % (12.0-15.0); WHITE BLOOD COUNT 8.2 x10^3/uL (4.8-10.8)
[2021-05-09 14:57] LABS: ACETAMINOPHEN < 10 ug/mL (10-30); ALBUMIN/GLOBULIN RATIO 1.3 (1.0-2.2); ALKALINE PHOSPHATASE 95 IU/L (42-121); ALT ALANINE AMINOTRANSFERASE 52 IU/L (10-60); AST ASPARTATE AMINOTRANSFERASE 45 IU/L (10-42); BILIRUBIN,TOTAL 0.5 mg/dL (0.2-1.0); BUN - BLOOD UREA NITROGEN 13 mg/dL (6-20); CALCIUM 9.3 mg/dL (8.5-10.3); CARBON DIOXIDE - CO2 25 mmol/L (21-32); CHLORIDE 97 mmol/L (101-111); CREATININE 0.6 mg/dL (0.4-1.0); ETOH - ETHANOL < 5.0 mg/dL; GFR - MDRD 101 (>89); GLUCOSE 106 mg/dL (70-100); LIPASE 22 U/L (22-51); POTASSIUM 2.8 mmol/L (3.5-5.0); SALICYLATE < 6.0 mg/dL; SODIUM 134 mmol/L (135-145); TOTAL PROTEIN 7.1 g/dL (6.7-8.2)
[2021-05-09 16:06] LABS: B. PARAPERTUSSIS- RESP PCR PAN NOT DETECTED; B. PERTUSSIS- RESP PCR PANEL NOT DETECTED; C. PNEUMONIAE- RESP PCR PANEL NOT DETECTED; CORONAVIRUS 229E-RESP PCR NOT DETECTED; CORONAVIRUS HKU1-RESP PCR NOT DETECTED; CORONAVIRUS NL63-RESP PCR NOT DETECTED; CORONAVIRUS OC43-RESP PCR NOT DETECTED; HUMAN METAPNEUMOVIRUS NOT DETECTED; INFLUENZA A- RESP PCR PANEL NOT DETECTED; INFLUENZA B - RESP PCR PANEL NOT DETECTED; M. PNEUMONIAE- RESP PCR PANEL NOT DETECTED; PARAINFLUENZA VIRUS 1 NOT DETECTED; PARAINFLUENZA VIRUS 2 NOT DETECTED; PARAINFLUENZA VIRUS 3 NOT DETECTED; PARAINFLUENZA VIRUS 4 NOT DETECTED; RHINOVIRUS/ENTEROVIRUS NOT DETECTED; RSV- RESP PCR PANEL NOT DETECTED; SARS-CoV-2 -RESP PCR PANEL NOT DETECTED
[2021-05-09] MEDS ORDERED: POTASSIUM CHLORIDE 20 MEQ TABLET PO STA (16:28)
== END 2021-05-09 18:13 | disposition home or self-care (01) ==
LOC: ED 12:53
DX: F43.29 Adjustment disorder with other symptoms (principal); F32.9 Major depressive disorder, single episode, unspecified; F41.9 Anxiety disorder, unspecified; Z63.4 Disappearance and death of family member; F10.20 Alcohol dependence, uncomplicated; I10 Essential (primary) hypertension; Z20.822 Contact with and (suspected) exposure to COVID-19
CPT/HCPCS: 0202U; 36415; 80053; 80307; 80320; 80329; 83690; 84443; 85025; 93005; 99284; 80306; 81001; 81003; 87086

== ENCOUNTER 2022-03-18 08:27 | Emergency (ER) | payer MEDICAID, OTHER ==
[2022-03-18] MEDS ORDERED: IPRATROPIUM/ALBUTEROL 3 ML NEB INH STA ×2 (10:35→11:20)
--- NOTE | 2022-03-18 10:48 | XRAY Report ---
PROCEDURE: Chest 2 View X-Ray INDICATIONS: Cutoff TECHNIQUE: 2 view(s) of the chest. COMPARISON: None. FINDINGS: Surgical changes and devices: None. Lungs and pleura: Diffusely coarsened interstitial markings which may be chronic. Superimposed airspa ce opacity in the left apex and in the left lung base. No pleural effusion or pneumothorax. Mediastinum: Mediastinal contours are normal. Heart size is normal. Bones and chest wall: No suspicious bony abnormalities. Soft tissues appear unremarkable. IMPRESSION: Mixed interstitial and airspace opacities could represent pulmonary edema or infection. Reviewed by: Simeon Peoples MD on 03/18/2022 10:47 AM PDT Approved by: Simeon Peoples MD on 03/18/2022 10:47 AM PDT Station ID: [id number]
--- NOTE | 2022-03-18 10:51 | ED Physician Documentation ---
PD HPI DYSPNEA - Stated complaint Stated Complaint: ASTHMA ATTACK - Chief complaint Chief Complaint: Resp - History obtained from History obtained from: Patient - History of Present Illness Timing - onset: How many days ago (2-3) Timing - onset during: Light activity Timing - duration: Days Timing - details: Gradual onset, Still present (has had increase in her asthma the past few days. Does not feel ill like URI per se, but having cough associated. Considers environmental factors.) Inciting event(s): Exposure (ie smoke) (seasonal allergies). No: URI Improved by: Inhaler/neb (some improvement with her Albuterol MDI but not well enough.) Worsened by: Exertion, Coughing Associated symptoms: Cough, Wheezing. No: Fever, Bilateral edema Similar symptoms before: Diagnosis (asthma in the past) Recently seen: Not recently seen Review of Systems Constitutional: denies: Fever, Chills Nose: denies: Rhinorrhea / runny nose, Congestion Throat: denies: Sore throat Cardiac: denies: Chest pain / pressure Respiratory: reports: Dyspnea, Cough, Wheezing GI: denies: Nausea, Vomiting Skin: denies: Rash Neurologic: denies: Generalized weakness, Near syncope PD PAST MEDICAL HISTORY - Past Medical History Cardiovascular: Hypertension Respiratory: Asthma Neuro: Headaches, Migraines Endocrine/Autoimmune: Other GI: GERD, Ulcers : None Psych: Depression, Anxiety Musculoskeletal: Osteoarthritis, Other Derm: None - Past Surgical History Past Surgical History: No General: Appendectomy, Splenectomy HEENT: Tonsil/Adenoidectomy - Present Medications Home Medications: Ambulatory Orders Medication Instructions Recorded Confirmed Albuterol Sulfate [Albuterol 2 puffs INH Q4H PRN 09/20/19 09/20/19 Sulfate Hfa] Buspirone HCl 15 mg PO BID 09/20/19 09/20/19 Celecoxib [Celebrex] 200 mg PO DAILY 09/20/19 09/20/19 Cyclobenzaprine HCl 10 mg PO BID 09/20/19 09/20/19 Fluoxetine HCl 40 mg PO DAILY 09/20/19 09/20/19 Fluticasone/Salmeterol [Advair Hfa 8 gm IH Q6H PRN #1 hfa.aer.ad 09/20/19 115-21 Mcg Inhaler] Gabapentin 600 mg PO TID 09/20/19 09/20/19 Montelukast [Singulair] 10 mg PO QPM 09/20/19 09/20/19 Temazepam 15 mg PO QPM PRN 09/20/19 09/20/19 lisinopriL [Lisinopril] 20 mg PO DAILY 09/20/19 09/20/19 traMADol [Ultram] 100 mg PO TID PRN 09/20/19 09/20/19 Ondansetron Odt [Zofran] 4 mg TL Q6H PRN #10 tablet 05/04/21 Diazepam [Valium] 10 mg PO BID 05/09/21 05/09/21 Omeprazole 1 tab DAILY 05/09/21 05/09/21 Potassium Citrate [Urocit-K] 5 meq PO DAILY #15 tablet 05/09/21 Sucralfate [Carafate] 1 tab QID 05/09/21 05/09/21 Trifluoperazine HCl 2 mg BID PRN 05/09/21 05/09/21 clonazePAM [Clonazepam] 0.5 mg BID 05/09/21 05/09/21 Doxycycline Hyclate 100 mg PO BID 7 Days #14 cap 03/18/22 Ipratropium [Atrovent] 1 puffs INH Q6H #12.9 gm 03/18/22 dexAMETHasone [Decadron] 4 mg PO DAILY #7 tablet 03/18/22 - Allergies Allergies/Adverse Reactions: Allergies Allergy/AdvReac Type Severity Reaction Status Date / Time Penicillins Allergy Unknown Verified 03/18/22 08:31 - Social History Does the pt smoke?: No Smoking Status: Never smoker Does the pt drink ETOH?: Yes Does the pt have substance abuse?: No - Immunizations Immunizations: TDAP >10years/unknown - POLST Patient has POLST: No POLST Status: Full Code PD ED PE NORMAL - Vitals Vital signs reviewed: Yes - General General: Alert and oriented X 3, No acute distress, Well developed/nourished - HEENT HEENT: Pharynx benign - Neck Neck: Supple, no meningeal sign, No adenopathy - Cardiac Cardiac: RRR, No murmur - Respiratory Respiratory: No: Clear bilaterally (no coarse sounds but has diffuse exp wheezing. No accessory muscle use. ) - Abdomen Abdomen: Soft, Non tender - Derm Derm: Normal color, Warm and dry - Extremities Extremities: No edema, No calf tenderness / cord - Neuro Neuro: Alert and oriented X 3, Normal speech Results - Vitals Vitals: Oxygen O2 Source Room air - Labs Labs: Laboratory Tests 03/18/22 10:58 Coronavirus (PCR) NEGATIVE PD MEDICAL DECISION MAKING - ED course Complexity details: re-evaluated patient (feels better with duoneb compared to albuterol only. With exac of asthma and cough, guidelines suggest steroids and use of abx for better improvement. ), considered differential, d/w patient Departure - Departure Disposition: 01 Home, Self Care Clinical Impression: Asthma Qualifiers: Asthma severity: moderate Asthma persistence: unspecified Asthma complication type: with acute exacerbation Qualified Code(s): J45.901 - Unspecified asthma with (acute) exacerbation Condition: Stable Record reviewed to determine appropriate education?: Yes Follow-Up: Kristine Martell MD [Primary Care Provider] - Prescriptions: Ipratropium [Atrovent] 1 puffs INH Q6H #12.9 gm dexAMETHasone [Decadron] 4 mg PO DAILY #7 tablet Doxycycline Hyclate 100 mg PO BID 7 Days #14 cap Comments: Continue your albuterol inhaler 2 puffs 4 times daily and extra times if needed. Add ipratropium/Atrovent inhaler 1 puff 4 times daily regularly for the next couple of weeks. Decadron steroid for airway inflammation daily for the next week. Doxycycline antibiotic twice daily for a week for potential secondary bacterial infection. Return if worsening or not improved well despite the above interventions. I sent your prescriptions to the [facility] pharmacy here in [place]. Discharge Date/Time: 03/18/22 12:00
[2022-03-18] MEDS ORDERED: DEXAMETHASONE 10 MG/ML VIAL PO STA (11:20)
[2022-03-18] MEDS ORDERED: DOXYCYCLINE 100 MG TABLET PO STA (11:20)
[2022-03-18] MEDS ORDERED: CHERRY SYRUP 10 ML UDC PO ONE (11:20)
[2022-03-18 11:58] VITALS: BP 124/83
== END 2022-03-18 12:00 | disposition home or self-care (01) ==
LOC: ED 08:27
DX: J45.901 Unspecified asthma with (acute) exacerbation (principal); Z20.822 Contact with and (suspected) exposure to COVID-19
CPT/HCPCS: 71046; 87635; 94640; 99284; A9270

== ENCOUNTER 2023-06-07 13:47 | Emergency (ER) | payer OTHER ==
[2023-06-07 14:27] LABS: BASOPHILS # (AUTO) 0.1 10^3/uL (0.0-0.1); BASOPHILS % (AUTO) 1.3 %; EOSINOPHILS # (AUTO) 0.2 10^3/uL (0.0-0.7); EOSINOPHILS % (AUTO) 2.8 %; HGB - HEMOGLOBIN 12.9 g/dL (12.0-16.0); LYMPHOCYTES # (AUTO) 2.2 10^3/uL (1.5-3.5); LYMPHOCYTES % (AUTO) 28.6 %; MEAN CORPUSCULAR HEMOGLOBIN 27.4 pg (27.0-31.0); MEAN CORPUSCULAR HGB CONC 32.3 g/dL (32.0-36.0); MEAN CORPUSCULAR VOLUME 85.1 fL (81.0-99.0); MEAN PLATELET VOLUME 10.2 fL (7.9-10.8); MONOCYTES # (AUTO) 0.6 10^3/uL (0.0-1.0); MONOCYTES % (AUTO) 7.2 %; NEUTROPHILS # (AUTO) 4.5 10^3/uL (1.5-6.6); NEUTROPHILS % (AUTO) 59.4 %; PLT - PLATELET COUNT 373 10^3/uL (130-450); RED CELL DISTRIBUTION WIDTH 15.9 % (12.0-15.0); WHITE BLOOD COUNT 7.6 x10^3/uL (4.8-10.8)
[2023-06-07 14:37] LABS: PARTIAL THROMBOPLASTIN TIME 27.5 secs (24.9-33.3)
[2023-06-07 14:41] LABS: ALBUMIN 4.3 g/dL (3.2-5.5); ALBUMIN/GLOBULIN RATIO 1.6 (1.0-2.2); ALKALINE PHOSPHATASE 99 IU/L (42-121); ALT ALANINE AMINOTRANSFERASE 16 IU/L (10-60); AST ASPARTATE AMINOTRANSFERASE 19 IU/L (10-42); BILIRUBIN,TOTAL 0.3 mg/dL (0.2-1.0); BUN - BLOOD UREA NITROGEN 21 mg/dL (6-20); CALCIUM 10.1 mg/dL (8.5-10.3); CARBON DIOXIDE - CO2 25 mmol/L (21-32); CHLORIDE 103 mmol/L (101-111); CREATININE 0.7 mg/dL (0.6-1.3); ETOH - ETHANOL < 10.0 mg/dL; GFR - MDRD 84 (>89); GLUCOSE 96 mg/dL (74-104); LIPASE 11 U/L (11-82); POTASSIUM 4.5 mmol/L (3.5-4.5); SODIUM 135 mmol/L (135-145)
[2023-06-07 14:42] LABS: PT - PROTHROMBIN TIME 11.5 secs (9.9-12.6)
--- NOTE | 2023-06-07 15:14 | ED Physician Documentation ---
PD HPI GI BLEED - Stated complaint Stated Complaint: STOMACH PX/BLEEDING - Chief complaint Chief Complaint: Abd Pain - History obtained from History obtained from: Patient - History of Present Illness Timing - onset: Today Timing - duration: Hours Timing - details: Abrupt onset, Now resolved Associated symptoms: BRBPR Contributing factors: No: Sick contact, Bad food, Travel, Recent antibiotics, Alcohol use, Aspirin use, NSAID use, Stress, Anticoagulated, Diabetes Improved by: BM Similar symptoms before: Diagnosis (bleeding ulcer) Recently seen: Not recently seen - Additional information Additional information: Ena Varela is a 68-year-old female with a history of bleeding ulcer who is on omeprazole and Carafate. Today she had some diarrhea with blood in it. She is concerned her ulcers are active again and bleeding and she is come to the emergency department for evaluation. She denies being lightheaded or dizzy she denies any nausea or coffee-ground emesis she denies bright red blood per rectum on prior bowel movements. She did have a loose bowel movement yesterday which was brown. She denies pain.She did take her Carafate as she regularly does and her omeprazole. Review of Systems Constitutional: denies: Fever Eyes: denies: Decreased vision Ears: denies: Ear pain Nose: denies: Congestion Throat: denies: Sore throat Cardiac: denies: Chest pain / pressure Respiratory: denies: Dyspnea, Cough GI: reports: Diarrhea, Bloody / black stool. denies: Abdominal Pain, Nausea, Vomiting, Constipation : denies: Dysuria, Frequency PD PAST MEDICAL HISTORY - Past Medical History Cardiovascular: Hypertension Respiratory: Asthma Neuro: Headaches, Migraines Endocrine/Autoimmune: Other GI: GERD, Ulcers : None Psych: Depression, Anxiety Musculoskeletal: Osteoarthritis, Other Derm: None - Past Surgical History Past Surgical History: No General: Appendectomy, Splenectomy HEENT: Tonsil/Adenoidectomy - Present Medications Home Medications: Ambulatory Orders Medication Instructions Recorded Confirmed Albuterol Sulfate [Albuterol 2 puffs INH Q4H PRN 09/20/19 09/20/19 Sulfate Hfa] Buspirone HCl 15 mg PO BID 09/20/19 09/20/19 Celecoxib [Celebrex] 200 mg PO DAILY 09/20/19 09/20/19 Cyclobenzaprine HCl 10 mg PO BID 09/20/19 09/20/19 Fluoxetine HCl 40 mg PO DAILY 09/20/19 09/20/19 Fluticasone/Salmeterol [Advair Hfa 8 gm IH Q6H PRN #1 hfa.aer.ad 09/20/19 115-21 Mcg Inhaler] Gabapentin 600 mg PO TID 09/20/19 09/20/19 Montelukast [Singulair] 10 mg PO QPM 09/20/19 09/20/19 Temazepam 15 mg PO QPM PRN 09/20/19 09/20/19 lisinopriL [Lisinopril] 20 mg PO DAILY 09/20/19 09/20/19 traMADol [Ultram] 100 mg PO TID PRN 09/20/19 09/20/19 Ondansetron Odt [Zofran] 4 mg TL Q6H PRN #10 tablet 05/04/21 Diazepam [Valium] 10 mg PO BID 05/09/21 05/09/21 Omeprazole 1 tab DAILY 05/09/21 05/09/21 Potassium Citrate [Urocit-K] 5 meq PO DAILY #15 tablet 05/09/21 Sucralfate [Carafate] 1 tab QID 05/09/21 05/09/21 Trifluoperazine HCl 2 mg BID PRN 05/09/21 05/09/21 clonazePAM [Clonazepam] 0.5 mg BID 05/09/21 05/09/21 Doxycycline Hyclate 100 mg PO BID 7 Days #14 cap 03/18/22 Ipratropium [Atrovent] 1 puffs INH Q6H #12.9 gm 03/18/22 dexAMETHasone [Decadron] 4 mg PO DAILY #7 tablet 03/18/22 - Allergies Allergies/Adverse Reactions: Allergies Allergy/AdvReac Type Severity Reaction Status Date / Time Penicillins Allergy Unknown Verified 06/07/23 13:56 - Social History Does the pt smoke?: No Smoking Status: Never smoker Does the pt drink ETOH?: Yes Does the pt have substance abuse?: No - Immunizations Immunizations: TDAP >10years/unknown - POLST Patient has POLST: No POLST Status: Full Code PD ED PE NORMAL - Vitals Vital signs reviewed: Yes (Hypertensive) - General General: Alert and oriented X 3, No acute distress, Well developed/nourished - HEENT HEENT: Atraumatic, PERRL, EOMI - Neck Neck: Supple, no meningeal sign, No bony TTP - Cardiac Cardiac: RRR, No murmur - Respiratory Respiratory: No respiratory distress, Clear bilaterally - Abdomen Abdomen: Normal bowel sounds, Soft, Non tender, Non distended, No organomegaly - Rectal Rectal: Other (With Lorraine as genetic technologist a rectal exam was performed and there is no evidence of external hemorrhoid there is soft brown stool present in the vault no internal hemorrhoid or mass present.) - Back Back: No CVA TTP, No spinal TTP - Derm Derm: Normal color, Warm and dry, No rash - Extremities Extremities: No deformity, No edema - Neuro Neuro: Alert and oriented X 3, friend of the court 2-12 intact, No motor deficit, No sensory deficit, Normal speech Eye Opening: Spontaneous Motor: Obeys Commands Verbal: Oriented GCS Score: 15 - Psych Psych: Normal mood, Normal affect Results - Vitals Vitals: Vital Signs - 24 hr 06/07/23 06/07/23 13:56 15:32 Temperature 37.1 C Heart Rate 100 88 Respiratory 16 16 Rate Blood Pressure 150/90 H 140/102 H O2 Saturation 97 92 Oxygen O2 Source Room air - Labs Labs: Laboratory Tests 06/07/23 06/07/23 06/07/23 14:19 14:19 14:19 WBC 7.6 RBC 4.70 Hgb 12.9 Hct 40.0 MCV 85.1 MCH 27.4 MCHC 32.3 RDW 15.9 H Plt Count 373 MPV 10.2 Neut # (Auto) 4.5 Lymph # (Auto) 2.2 [place] # (Auto) 0.6 Eos # (Auto) 0.2 Baso # (Auto) 0.1 Absolute Nucleated RBC 0.00 Nucleated RBC % 0.0 PT 11.5 INR 1.0 APTT 27.5 Sodium 135 Potassium 4.5 Chloride 103 Carbon Dioxide 25 Anion Gap 7.0 BUN 21 H Creatinine 0.7 Estimated GFR (MDRD) 84 L Glucose 96 Calcium 10.1 Total Bilirubin 0.3 AST 19 ALT 16 Alkaline Phosphatase 99 Total Protein 7.0 Albumin 4.3 Globulin 2.7 Albumin/Globulin Ratio 1.6 Lipase 11 Urine Color Urine Clarity Urine pH Ur Specific Jack Urine Protein Urine Glucose (UA) Urine Ketones Urine Occult Blood Urine Nitrite Urine Bilirubin Urine Urobilinogen Ur Leukocyte Esterase Urine RBC Urine WBC Ur Squamous Epith Cells Urine Bacteria Ur Microscopic Review Urine Culture Comments Stl Occult Blood (IFOB) Ethyl Alcohol < 10.0 06/07/23 06/07/23 15:08 15:45 WBC RBC Hgb Hct MCV MCH MCHC RDW Plt Count MPV Neut # (Auto) Lymph # (Auto) [place] # (Auto) Eos # (Auto) Baso # (Auto) Absolute Nucleated RBC Nucleated RBC % PT INR APTT Sodium Potassium Chloride Carbon Dioxide Anion Gap BUN Creatinine Estimated GFR (MDRD) Glucose Calcium Total Bilirubin AST ALT Alkaline Phosphatase Total Protein Albumin Globulin Albumin/Globulin Ratio Lipase Urine Color YELLOW Urine Clarity CLEAR Urine pH 6.0 Ur Specific Jack 1.025 Urine Protein NEGATIVE Urine Glucose (UA) NEGATIVE Urine Ketones NEGATIVE Urine Occult Blood SMALL H Urine Nitrite NEGATIVE Urine Bilirubin NEGATIVE Urine Urobilinogen 0.2 (NORMAL) Ur Leukocyte Esterase NEGATIVE Urine RBC 6-10 H Urine WBC 0-3 Ur Squamous Epith Cells RARE Squamous Urine Bacteria Rare Ur Microscopic Review INDICATED Urine Culture Comments NOT INDICATED Stl Occult Blood (IFOB) POSITIVE A Ethyl Alcohol PD Medical Decision Making - ED course Complexity details: reviewed old records, reviewed results, re-evaluated patient, considered differential, d/w patient Reviewed Lab Results: We reviewed a complete blood count with a normal hemoglobin hematocrit white blood cell count and platelets. Coagulation parameters were normal chemistry showed normal electrolytes normal kidney and liver function. BUN was mildly elevated at 21. I interpreted these laboratory results to indicate no significant blood loss. The BUN being mildly elevated at 21 was a concern for the potential of digesting blood. ED course: 68-year-old female with red blood from the rectum is on Carafate and omeprazole she has a history of duodenal ulcer. She has normal blood counts she has no red blood today and on stool exam she does have occult blood. She has a tiny uptake in her BUN consistent with the possibility of ingestion of blood and I have asked the patient to discontinue the use of alcohol as this appears to be the precipitant of her change. She usually drinks beer and she got some vodka recently and this is occurred following consumption. Departure - Departure Disposition: 01 Home, Self Care Clinical Impression: GI bleeding Qualifiers: GI bleed type/associated pathology: unspecified gastrointestinal hemorrhage type Qualified Code(s): K92.2 - Gastrointestinal hemorrhage, unspecified Condition: Stable Instructions: ED Hematochezia Stable, ED Bleed UGI Stable Follow-Up: Kristine Martell MD [Primary Care Provider] - Comments: Ena, today it looks like there is blood in your stool and this has not caused any change in your blood counts. There was mild elevation in your BUN and you have a prior history of duodenal ulcer and this would be the likely source of blood. The insult to your stomach with use of hard alcohol is likely the cause. My recommendation is to stay on your medication with the Carafate and omeprazole and avoid any insult to your stomach. Avoid alcohol and avoid anti- inflammatories. A follow-up with your primary care doctor is indicated for reevaluation of blood in your stool. My recommendation is to discontinue alcohol use continue your regular medications and in about 2 weeks follow-up with your regular doctor for recheck of your stool. If you have regular amounts of bleeding daily follow-up with your doctor sooner for scoping. Forms: Activity restrictions Discharge Date/Time: 06/07/23 16:02
[2023-06-07 15:30] LABS: FECAL OCCULT BLOOD (FIT) POSITIVE (NEGATIVE)
[2023-06-07 15:38] VITALS: BP 140/102; O2SAT 92
[2023-06-07 15:53] LABS: BILIRUBIN,URINE NEGATIVE (NEGATIVE); GLUCOSE, URINE (UA) NEGATIVE (NEGATIVE); KETONES,URINE (UA) NEGATIVE (NEGATIVE); LEUKOCYTE ESTERASE, URINE NEGATIVE (NEGATIVE); NITRITE,URINE NEGATIVE (NEGATIVE); OCCULT BLOOD,URINE SMALL (NEGATIVE); PROTEIN,URINE NEGATIVE (NEGATIVE); UROBILINOGEN,URINE 0.2 (NORMAL) E.U./dL (NORMAL)
[2023-06-07 15:56] LABS: CLARITY,URINE CLEAR (CLEAR)
[2023-06-07 16:09] LABS: WBC,URINE 0-3 /HPF (0-5)
[2023-06-07 16:10] LABS: BACTERIA,URINE Rare /HPF (None Seen); SQUAMOUS EPITHELIAL CELL,UR RARE Squamous (<= Few)
== END 2023-06-07 16:02 | disposition home or self-care (01) ==
LOC: ED 13:47
DX: K92.2 Gastrointestinal hemorrhage, unspecified (principal); I10 Essential (primary) hypertension; Z79.899 Other long term (current) drug therapy; Z79.51 Long term (current) use of inhaled steroids
CPT/HCPCS: 36415; 80053; 80320; 81001; 81003; 82274; 83690; 85025; 85610; 85730; 87086; 99283